=== PATIENT | female | born 1980 | race Caucasian/White ===

== ENCOUNTER 2018-11-27 21:46 | Emergency (ER) | payer SELFPAY ==
[~2018-11-27] VITALS: Ht 149.9 cm; Wt 64.2 kg
[~2018-11-27 21:46] MED LIST: BACTDS PO; HYDR-3498 PO; IBUP-1542 PO; [UNRECOGNIZED DRUG - CODE] MC
[2018-11-27 21:54] VITALS: BP 147/86; PULSE 78; RESP 17; Ht 149.9 cm; Wt 64.2 kg
== END 2018-11-28 01:40 | disposition left against medical advice (07) ==
LOC: FTE 21:46
DX: Z53.21 Procedure and treatment not carried out due to patient leaving prior to being seen by health care provider (principal)

== ENCOUNTER 2019-04-23 16:20 | Emergency (ER) | payer MEDICAID ==
[~2019-04-23] VITALS: Wt 65.9 kg
[~2019-04-23 16:20] MED LIST changes: +HYDR-4011 PO
[2019-04-23 16:31] VITALS: BP 108/67; PULSE 67; RESP 20
[2019-04-23] MEDS ORDERED: ONDANSETRON (ODT) 4 MG TAB ODT STA (17:05)
[2019-04-23] MEDS ORDERED: HYDROCODONE/APAP (5/325) TAB PO ONE (17:30)
--- NOTE | 2019-04-23 18:41 | ERD ---
ER Documentation Chief Complaint Chief Complaint mid upper abd pain w n/v/d HPI 39 year old female presents with Complaint of epigastric pain with associated nausea, vomiting, and diarrhea for the past day. Pain is nonradiating Described vomitus as non-bilious a non-bloody. Denies CP, SOB, diaphoresis, cough, leg s welling, leg rednesss, fever, chills, flank olivia, dysuria, hematuria, jaundice, bloody diarrhea ROS All systems reviewed and are negative except as per history of present illness. Medications Home Meds Active Scripts Hydrocodone/Acetaminophen (Scio 5-325 Tablet) 1 Each Tablet, 1 TAB PO Q6H PRN for PAIN, #15 TAB Prov:GENNA SANCHEZ 04/23/19 Ibuprofen* (Motrin*) 600 Mg Tab, 600 MG PO Q6, #30 TAB Prov:GENNA SANCHEZ 04/23/19 Magnesium Sulfate (Epsom Salt) 1,816 Gm Crystals, 1816 GM MC Q12 for 5 Days Prov:SPENCER KAUR 02/21/16 Ibuprofen* (Motrin*) 600 Mg Tab, 600 MG PO Q6, #30 TAB Prov:SPENCER KAUR 02/21/16 Hydrocodone Bit-Acetaminophen* (Scio*) 5-325 Mg Tab, 1 TAB PO Q6 PRN for PAIN, #20 TAB Prov:SPENCER KAUR 02/21/16 Sulfamethoxazole-Trimethoprim* (Bactrim* DS) 800-160 Mg Tab, 1 TAB PO BID for 7 Days, TAB Prov:SPENCER KAUR 02/21/16 Allergies Allergies: Coded Allergies: No Known Allergy (Unverified , 11/27/18) PMhx/Soc Medical and Surgical Hx: pt denies Medical Hx, pt denies Surgical Hx History of Surgery: Yes () Hx Alcohol Use: No Hx Substance Use: No Hx Tobacco Use: No FmHx Family History: No diabetes, No coronary disease, No other Physical Exam Vitals Physical Exam Const: No acute distress Head: Atraumatic Eyes: Normal Conjunctiva ENT: Normal External Ears, Nose and Mouth. Neck: Full range of motion. No meningismus. Resp: Clear to auscultation bilaterally Cardio: Regular rate and rhythm, no murmurs Abd: Soft, non tender, non distended. Normal bowel sounds Skin: No petechiae or rashes Back: No midline or flank tenderness Ext: No cyanosis, or edema Neur: Awake and alert Psych: Normal Mood and Affect Results 24 hrs Laboratory Tests Test 04/23/19 17:16 04/23/19 17:27 White Blood Count 9.6 10^3/ul Red Blood Count 3.89 10^6/ul Hemoglobin 11.8 g/dl Hematocrit 36.0 % Mean Corpuscular Volume 92.5 fl Mean Corpuscular Hemoglobin 30.3 pg Mean Corpuscular Hemoglobin Concent 32.8 g/dl Red Cell Distribution Width 12.9 % Platelet Count 307 10^3/UL Mean Platelet Volume 9.8 fl Immature Granulocytes % 0.300 % Neutrophils % 63.5 % Lymphocytes % 26.8 % Monocytes % 8.0 % Eosinophils % 1.0 % Basophils % 0.4 % Nucleated Red Blood Cells % 0.0 /100WBC Immature Granulocytes # 0.030 10^3/ul Neutrophils # 6.1 10^3/ul Lymphocytes # 2.6 10^3/ul Monocytes # 0.8 10^3/ul Eosinophils # 0.1 10^3/ul Basophils # 0.0 10^3/ul Nucleated Red Blood Cells # 0.0 10^3/ul Urine Color YELLOW Urine Clarity CLOUDY Urine pH 6.0 Urine Specific [place] 1.020 Urine Ketones NEGATIVE mg/dL Urine Nitrite NEGATIVE mg/dL Urine Bilirubin NEGATIVE mg/dL Urine Urobilinogen NEGATIVE mg/dL Urine Leukocyte Esterase NEGATIVE García/ul Urine Microscopic RBC 2 /HPF Urine Microscopic WBC 1 /HPF Urine Squamous Epithelial Cells FEW /HPF Urine Amorphous Crystals MODERATE /HPF Urine Hemoglobin 1+ mg/dL Urine Glucose NEGATIVE mg/dL Urine Total Protein NEGATIVE mg/dl Sodium Level 141 mmol/L Potassium Level 3.6 mmol/L Chloride Level 106 mmol/L Carbon Dioxide Level 24 mmol/L Anion Gap 11 Blood Urea Nitrogen 16 mg/dl Creatinine 0.77 mg/dl Est Glomerular Filtrat Rate mL/min > 60 mL/min Glucose Level 96 mg/dl Calcium Level 9.5 mg/dl Total Bilirubin 0.3 mg/dl Direct Bilirubin 0.00 mg/dl Indirect Bilirubin 0.3 mg/dl Aspartate Amino Transf (AST/SGOT) 23 IU/L Alanine Aminotransferase (ALT/SGPT) 26 IU/L Alkaline Phosphatase 75 IU/L Total Protein 8.0 g/dl Albumin 4.3 g/dl Globulin 3.70 g/dl Albumin/Globulin Ratio 1.16 Lipase 43 U/L POC Beta HCG, Qualitative NEGATIVE Current Medications Medications Dose Sig/Jarrett Start Time Status Last (Trade) Ordered Route PRN Stop Time Admin Dose Reason Admin Ondansetron 8 mg ONCE STAT 04/23/19 DC 04/23/19 HCl (Zofran ODT 17:05 17:18 Odt) 04/23/19 17:14 1 tab ONCE ONCE 04/23/19 DC 04/23/19 Acetaminophen PO 17:30 17:18 / 04/23/19 17:31 Hydrocodone Bitart (Scio (5)) Procedures/MDM DIAGNOSTIC IMAGING REPORT Patient: BONG MCCONNELL : 1980 Age: 39 Sex: F MR #: [id number] DOS: 04/23/19 1705 Ordering MD: GENNA SANCHEZ Location: [facility] Room/Bed: PROCEDURE: Right upper quadrant ultrasound CLINICAL INDICATION: Abdominal pain TECHNIQUE: Multiple real-time images were acquired of the patient's abdomen and right retroperitoneum utilizing a high resolution transducer. COMPARISON: None FINDINGS: The liver is normal in echogenicity and measures 14.1 cm. No focal hepatic masses are seen. The gallbladder is physiologically distended. There is extensive sludge and stones within the gallbladder. There is no gallbladder wall thickening or pericholecystic fluid. The intra and extrahepatic bile ducts are normal in caliber. The common bile duct measures 5.4 mm. Midline images demonstrate the pancreas to be normal in echogenicity without obvious inflammatory change. Pancreatic tail is suboptimally seen. Survey views of the right kidney demonstrate no evidence of hydronephrosis or renal calculi. The right kidney measures 10.6 cm. IMPRESSION: 1. Cholelithiasis. There is no gallbladder wall thickening or pericholecystic fluid to suggest acute cholecystitis. 2. Common bile duct upper limits of normal RPTAT: HH .Spenser Azevedo MD, MD Date Time Electronically viewed and signed by .Spenser Azevedo MD, MD on 04/23/2019 18:26 .W/ CC: GENNA SANCHEZ [phone] MDM: Given patient's complaint of epigastric pain and physical exam findings decision was made to do gallbladder ultrasound. Ultrasound was positive for cholelithiasis. There is no evidence of Aby cystitis seen. Patient does not have a white count, her LFTs are normal, and showed normal bilirubin. This point I have low suspicion for biliary duct obstruction, ascending cholangitis, cholecystitis, acute abdomen, appendicitis, bowel obstruction, or any other e mergent condition. Patient was advised that she needs to stay away from fatty foods as this will exacerbate her condition. Patient advised to follow with primary care and for possible surgical referral. I educated patient that she is at increased risk for infections in her gallbladder and if she gets fevers or worsening pain she needs to return to ER immediately all this was explained to patient with commercial decorator present. Patient understood and agreed. At this time, patient is stable for discharge and outpatient management. I have instructed the patient to follow-up with his/her primary care physician in 1-2 days. I have discussed with the patient the possibility of needing to see a specialist for further workup and imaging studies if symptoms persist. I have instructed the patient to promptly return to the ER for any new or worsening symptoms including but not limited to increased pain, fever, nausea, vomiting, weakness or LOC. The patient and/or family expressed understanding of and agreement with this plan. All questions were answered. Home care instructions were provided. Communication with patient both during the exam and instructions for discharge were performed with using a commercial decorator . Patient gave verbal confirmation to the practitioner, through the commercial decorator, that they understood everything that was being said to them. DISCLAIMER: Inadvertent spelling and grammatical errors are likely due to EHR/dictation software use and do not reflect on the overall quality of patient care. Also, please note that the electronic time recorded on this note does not necessarily reflect the actual time of the patient encounter. Departure Diagnosis: Primary Impression: Cholelithiasis Condition: Stable Patient Instructions: What Are Gallstones?, Treating Gallstones, Gallstones, Biliary Colic With Gallstone (Confirmed) Referrals: [facility] YOU HAVE RECEIVED A MEDICAL SCREENING EXAM AND THE RESULTS INDICATE THAT YOU DO NOT HAVE A CONDITION THAT REQUIRES URGENT TREATMENT IN THE EMERGENCY DEPARTMENT. FURTHER EVALUATION AND TREATMENT OF YOUR CONDITION CAN WAIT UNTIL YOU ARE SEEN IN YOUR DOCTORS OFFICE WITHIN THE NEXT 1-2 DAYS. IT IS YOUR RESPONSIBILITY TO MAKE AN APPOINTMENT FOR FOLOW-UP CARE. IF YOU HAVE A PRIMARY DOCTOR --you should call your primary doctor and schedule an appointment IF YOU DO NOT HAVE A PRIMARY DOCTOR YOU CAN CALL OUR PHYSICIAN REFERRAL HOTLINE AT IF YOU CAN NOT AFFORD TO SEE A PHYSICIAN YOU CAN CHOSE FROM THE FOLLOWING [facility] [address] [facility] [address] [facility] [facility] [address] [facility] [address] [facility]. [facility] [address] [facility]. [facility]. [address] Additional Instructions: FOLLOW UP WITH YOUR PRIMARY CARE PHYSICIAN TOMORROW.Return to this facility if you are not improving as expected. GENNA SANCHEZ Apr 23, 2019 18:41
== END 2019-04-23 18:51 | disposition home or self-care (01) ==
LOC: FTE 16:20
DX: K80.20 Calculus of gallbladder without cholecystitis without obstruction (principal)
CPT/HCPCS: 76705; 80053; 81001; 81025; 83690; 85025; Z7610; 36415